=== PATIENT | male | born 1970 | race Asian ===

== ENCOUNTER → 2019-09-21 | Outpatient (CLI) | payer OTHER ==
--- NOTE | 2019-09-21 13:33 | PCVCIMAG ---
APPROVED REPORT Study performed: 09/21/2019 09:13:53 Exam: Stress Echocardiogram Indication: Syncope Patient Location: Echo lab Stress Nurse: Mary Monk RN Room #: 2 Status: routine Ht: 5 ft 6 in HR: 72 bpm BP: 116/90 mmHg Rhythm: NSR Medical History Medical History: Hyperlipidemia Cardiac Risk Factors: Hyperlipidemia Pretest Chest Pain Characteristics: No chest pain Exercise History: Physically active Procedure The patient underwent an Exercise Stress Test using the Moshe Protocol. Blood pressure, heart rate, and EKG were monitored. An Echocardiogram was performed by hotel maintenance technician in four stages in quad fashion. At peak stress, four selected images were obtained and placed side by side with resting images for comparison. Stress Test Details Stress Test: Exercise stress testing was performed using a Moshe protocol. HR Resting HR: 72 bpmMax Heart Rate (APMHR): 170 bpm Max HR Achieved: 173 bpmTarget HR (85% APMHR): 144 bpm % of APMHR: 101 Recovery HR: 107 bpm HR response to stress: Normal HR response to stress BP Resting BP: 116/90 mmHg Max BP: 184/80 mmHg Recovery BP: 138/84 mmHg BP response to stress: Normal blood pressure response to stress. ECG Resting ECG: Sinus Rhythm, NSSTT changes Stress ECG: Sinus Rhythm, NSSTT changes ST Change: Non-ischemic Maximum ST Deviation: 0.90 mm Arrhythmia: Rare PVC Recovery ECG: Sinus Rhythm Recovery ST Change: Non-ischemic Recovery ST Deviation: 0.90 mm Recovery Arrhythmia: None Clinical Reason for Termination: Maximal effort Stress Symptoms: leg fatigue Exercise duration: 10 min 44 sec Highest Stage Achieved: Stage 4: 4.2 mph at 16% grade. Exercise capacity: 13.4 METs Overall Exercise Capacity for Age: Good Scale: Active Angina Score: None No complications. Stress ECG Conclusion 1. Subjectively negative for ischemia 2. Echocardiographic negative for ischemia 3. Satisfactory functional capacity Edmond Treadmill Score is 5.5 which is Low risk. Pre-Stress Echo The resting Echocardiogram showed normal left ventricular contractility with an estimated Ejection Fraction of about 55-60%. Normal wall motion in all segments on baseline images. Post-Stress Echo The stress Echocardiogram showed normal left ventricular contractility with an estimated Ejection Fraction of about 65-70%. Normal augmentation of wall motion in all segments on post stress images. Clinical No clinical or ECG evidence for ischemia. Conclusion Clinical Response: Non-ischemic Exercise Capacity: Superior Stress ECG Response: Non-ischemic Stress Echo Images: Non-ischemic No clinical, EKG or echocardiographic evidence for ischemia. No echocardiographic evidence for exercise induced ischemia. Normal stress echocardiogram with maximal exercise stress. Normal color doppler. No regurgitation or stenosis present on pulmonic, tricuspid and aortic valves. Trace mitral regurgitation is seen. 1. Low risk study <Conclusion> No clinical, EKG or echocardiographic evidence for ischemia. No echocardiographic evidence for exercise induced ischemia. Normal stress echocardiogram with maximal exercise stress. Normal color doppler. No regurgitation or stenosis present on pulmonic, tricuspid and aortic valves. Trace mitral regurgitation is seen. 1. Low risk study
== END | disposition home or self-care (01) ==
LOC: PCVCIMAG 09:02
PROVIDERS: ATTEND Internal Medicine Cardiovascular Disease
DX: R55 Syncope and collapse (principal); E78.5 Hyperlipidemia, unspecified; Z82.49 Family history of ischemic heart disease and other diseases of the circulatory system
CPT/HCPCS: 93325; 93351